=== PATIENT | male | born 1940 | race Caucasian/White ===

== ENCOUNTER 2016-06-27 15:47 | Inpatient (IN) | payer MEDICARE ==
[~2016-06-27] VITALS: Ht 175.3 cm; Wt 117.4 kg
[2016-07-01] MEDS ORDERED: METF500T PO (11:14)
[2016-07-01] MEDS ORDERED: APIX5TAB PO (11:14)
[2016-07-01] MEDS ORDERED: HYDR25TA5 PO (11:14)
[2016-07-01] MEDS ORDERED: TAMS5CAP PO (11:14)
[2016-07-01] MEDS ORDERED: CARD120T4 PO (11:14)
[2016-07-01] MEDS ORDERED: PRAV20TA PO (11:14)
[2016-07-02] MEDS ORDERED: INSULIN HUMAN REGULAR 1,000 UNITS/10 ML VIAL SQ PRN (07:00)
[2016-07-02] MEDS ORDERED: EXPAREL PERI-ARTICULAR INJECTION (TOTAL VOL. 60 ML) P-ARTICULR SCH ×2 (07:00)
[2016-07-02] MEDS ORDERED: TRANEXAMIC ACID IV SCH (07:00)
[2016-07-02] MEDS ORDERED: METOPROLOL TARTRATE 25 MG TAB PO PRN (07:00)
[2016-07-02] MEDS ORDERED: ceFAZolin 2 GM PREMIX 50 ML IV SCH (07:00)
[2016-07-02] MEDS ORDERED: SODIUM CHLORIDE 0.9% IV SCH (07:00)
[2016-07-02] MEDS ORDERED: LACTATED RINGER'S 1000 ML IV SCH (07:00)
[2016-07-02] MEDS: POVIDONE IODINE 7.5% SCRUB 118 ML BOTTLE TOP SCH (07:00)
[2016-07-02] MEDS ORDERED: VANCOMYCIN 1000 MG/NS 250 ML (for <70 kg) IV SCH ×2 (07:00)
[2016-07-02] MEDS ORDERED: SODIUM CHLORID 0.9% 500 ML IV SCH (07:00)
[2016-07-02] MEDS ORDERED: BUPIVACAINE LIPOSO PF 1.3% INJ 20 ML in SODIUM CHLORIDE 0.9% INJ 40 ML P-ARTICULR SCH (07:04)
--- NOTE | 2016-07-02 07:21 | MH ---
cc: ADRIANA LEONE DATE OF ADMISSION: 07/02/2016 ADMISSION DIAGNOSIS Malfunctioning left unicompartmental replacement arthroplasty. HISTORY This is a 76-year-old white male with a history of previous left knee medial compartment unicompartmental placement. The patient is having failure of the tibial component with subsidence. The patient has significant pain and progressive varus deformity. He presents now for surgical treatment. PAST MEDICAL HISTORY, SOCIAL HISTORY, FAMILY HISTORY, REVIEW OF SYSTEMS See attached notes. PHYSICAL EXAMINATION General: A 76-year-old male in moderate distress with his left knee. HEENT: Normocephalic, atraumatic. Pupils equal, round, reactive to light and accommodation. Extraocular motions intact. Neck: Supple. Chest: Clear. Heart: Regular rate and rhythm. Abdomen: Soft, nontender with normoactive bowel sounds. Musculoskeletal: Examination shows left knee pain with range of motion. Well-healed medial incision, varus deformity, mild instability. Neurologic and Vascular Examination: Within normal limits. IMPRESSION Malfunctioning left unicompartmental replacement arthroplasty. PLAN Revision left total knee replacement arthroplasty, possible tibial osteotomy with fixation. CONSENT There are risks with surgery including infection, bleeding, loss of motion, continued pain, need for further surgery, neurologic and vascular injury. The patient understands these issues and wishes to press on with the surgery as outlined above. MD DEDE Bal/LANE /10:41 PM /7:18 AM
[2016-07-02] MEDS ORDERED: CALC600T25 PO (07:36)
[2016-07-02] MEDS ORDERED: POTA2.5T (07:36)
[2016-07-02] MEDS ORDERED: CYAN1TAB24 PO (07:36)
[2016-07-02] MEDS ORDERED: CHOL1TAB29 PO (07:36)
[2016-07-02 07:38] VITALS: BP 155/78; PULSE 74; RESP 18; TEMP 97.6; O2SAT 100
[2016-07-02] MEDS ORDERED: FAMOTIDINE 20 MG/2 ML VIAL ONE (07:59)
[2016-07-02] MEDS ORDERED: DEXAMETHASONE SOD PHOS 4 MG/ML VIAL ONE (07:59)
[2016-07-02] MEDS ORDERED: MIDAZOLAM HCL 5 MG/5 ML VIAL ONE (07:59)
[2016-07-02] MEDS ORDERED: GENTAMICIN SULFATE 80 MG/2 ML VIAL ONE (08:26)
[2016-07-02] MEDS ORDERED: BUPIVACAINE HCL PF 0.25% 30 ML VIAL NB ONE (10:46)
[2016-07-02] MEDS ORDERED: BUPIVACAINE HCL PF 0.5% 30 ML VIAL NB ONE (10:46)
[2016-07-02] MEDS ORDERED: DEXAMETHASONE SOD PHOS PF 10 MG/ML VIAL IV ONE (10:46)
[2016-07-02] MEDS ORDERED: ACETAMINOPHEN 1000 MG/100 ML VIAL IV ONE (11:04)
[2016-07-02] MEDS ORDERED: LACTATED RINGER'S 1000 ML INJ 1,000 ML IV ONE (11:29)
[2016-07-02] MEDS ORDERED: PROPOFOL 200 MG/20 ML AMP IV ONE (11:29)
[2016-07-02] MEDS ORDERED: ONDANSETRON HCL 4 MG/2 ML VIAL IV PUSH ONE (11:29)
[2016-07-02] MEDS ORDERED: NEOSTIGMINE 3 MG/3 ML SYR IV ONE (11:29)
[2016-07-02] MEDS ORDERED: ACETAMINOPHEN/HYDROcodone 325 MG/7.5 MG TAB PO PRN (12:30)
[2016-07-02] MEDS ORDERED: TEMAZEPAM 15 MG CAP PO PRN (12:30)
[2016-07-02] MEDS ORDERED: SODIUM CHLORIDE 0.9% FLUSH 5 ML FLUSH IVF PRN (12:30)
[2016-07-02] MEDS ORDERED: ALUMINUM/MAGNESIUM/SIMETH 30 ML CUP PO PRN (12:30)
[2016-07-02] MEDS ORDERED: MISCELLANEOUS NURSING INFORMATION XX PRN (12:30)
[2016-07-02] MEDS ORDERED: DEXTROSE 50% IN WATER 50 ML VIAL(D50) IV PRN (12:30)
[2016-07-02] MEDS ORDERED: NALOXONE HCL 0.4 MG/ML AMP IV PRN (12:30)
[2016-07-02] MEDS ORDERED: MAGNESIUM HYDROXIDE SUSP 30 ML CUP PO PRN (12:30)
[2016-07-02] MEDS ORDERED: GLUCAGON 1 MG/ML VIAL IM/SQ PRN (12:30)
[2016-07-02] MEDS ORDERED: MORPHINE SULFATE 30 MG/30 ML PCA IV SCH (12:30)
[2016-07-02] MEDS ORDERED: ONDANSETRON HCL 4 MG/2 ML VIAL IVP PRN (12:30)
[2016-07-02] MEDS ORDERED: MORPHINE SULFATE 8 MG/ML INJ IV PUSH PRN (12:30)
[2016-07-02] MEDS ORDERED: BISACODYL 10 MG SUPP PR PRN (12:30)
--- NOTE | 2016-07-02 12:33 | PD.OP ---
cc: Quinn Knight MD Operative Report Date of Surgery: Jul 02, 2016 Preoperative Diagnosis: Malfunctioning left medial compartment partial knee replacement. Loosening tibial component Postoperative Diagnosis: Same Procedure: Revision left total knee replacement arthroplasty Anesthesia: Gen. Surgeon: Quinn Knight Data Coordinator(s): EVA Hurtado Operation and Findings: EBL: 100 cc INDICATION: This patient presents with long-standing arthritis of the knee. This patient has had a partial medial compartment unicompartmental replacement performed by another surgeon. The patient did well initially but developing progressive varus deformity. The patient has evidence of loosening of the tibial component. The patient now presents for revision arthroplasty NOTE: Magali Hurtado PA-C was present for the entire surgical procedure as my assistant technician. In my medical opinion her skill and care was necessary for proper management of this patient. TOURNIQUET TIME: 97 minutes COMPANY: [employer] FEMUR: Size 5, left, posterior stabilized, bilateral 4 mm distal augment TIBIA: Size 4, fixed bearing PATELLA: 38 mm POLYETHYLENE INSERT: 12.5, posterior stabilized mm PROCEDURE: This patient was brought the operating room and anesthetized in the supine position. The patient was positioned supine on the table. The tourniquet was placed about the thigh, and the leg was scrubbed with alcohol followed by Hibiclens followed by ChloraPrep and draped sterilely. A timeout was done, and antibiotics were given. After exsanguination the tourniquet was inflated to 250 mmHg. The previous incision was excised. A medial arthrotomy was performed. There was significant synovitis. There was significant wear of the polyethylene in the medial compartment. There was evidence of loosening of the tibial component. Deep retractors allowed good visualization. A pilot boat deckhand hole was placed in the distal femur allowing a 5 cut to be made based off of preoperative templating. We resected 9 mm from the distal lateral femoral condyle. We initially resected as much as we could and then worked carefully to remove the femoral component. A combination of osteotomes and chisels were used and the medial femoral component was removed without incident. Anterior, posterior and chamfer cuts were performed for a #5 femoral component. A box cut was made for the posterior stabilized portion. The attention was directed to the tibia. A combination of saw's at osteotomes were used to loosen the rest of the tibial component from the surrounding tissue and removed in a retrograde fashion. The external alignment guide was utilized removing approximately 12 mm from the distal lateral tibia which removed 0 from the medial side. We sized this for a #4 tibial component. Posterior releases were accomplished. We found with a 15 mm insert was still unstable and extension but satisfactory in flexion. It was almost a little too tight in flexion. We built the distal femur out the 4 mm and then balanced with a 12-1/2 mm insert. This gave good balancing in flexion and extension. The components were prepared on the back table. The wound was irrigated copiously and dried. 2 packs of methacrylate were mixed. The components were cemented. Excess cement was removed. The patella was cemented as well. We trialed a 12.5 mm insert which fit nicely. The final insert was inserted. Tourniquet was let down. Hemostasis was controlled. A drain was brought through a separate stab incision. The arthrotomy was repaired with interrupted #1 Vicryl suture, subcutaneous tissue 2-0 Vicryl suture and skin with metallic billy A sterile dressing was applied. Sponge counts, needle counts and instrument counts were all correct. The patient tolerated procedure well and was taken to recovery in satisfactory condition. FINDINGS: There was evidence of subsidence of the tibial component. There was wear of the tibial plastic with varus deformity and aggressive synovitis. The final balancing was satisfactory. No complication was appreciated. Quinn Knight MD Jul 02, 2016 12:32
[2016-07-02] MEDS ORDERED: XARE10TA PO (12:35)
[2016-07-02] MEDS ORDERED: HYDR-3580 PO (12:35)
[2016-07-02] MEDS ORDERED: Post-op Orders (for Pharmacy) MISC XX ONE (12:37)
[2016-07-02] MEDS ORDERED: fentaNYL CITRATE 250 MCG/5 ML AMP ONE (12:52)
[2016-07-02] MEDS: LACTATED RINGER'S 1000 ML INJ 1,000 ML IV SCH (13:00)
[2016-07-02] MEDS ORDERED: DO NOT ADM ANY ANTICOAGULANT DRUGS XX PRN (13:15)
[2016-07-02] MEDS: PCA - TOTAL MG MORPHINE DELIVERED PER SHIFT SCH ×2 (14:00→22:00)
--- NOTE | 2016-07-02 15:02 | RADRPT ---
EXAM DATE/TIME: 07/02/2016 13:06 [facility] COMPARISON: No previous studies available for comparison. INDICATIONS : Post-op total left knee arthroplasty. MEDICAL HISTORY : Hypertension. Diabetes mellitus type II. SURGICAL HISTORY : Fusion, lumbar. Left knee barbara-arthroplasty, right trigger finger surgery. ENCOUNTER: Initial ACUITY: 1 day PAIN SCORE: 0/10 LOCATION: Left Knee. FINDINGS: The patient is status post total knee replacement. The prosthetic components appear we ll placed. There is a suprapatellar drain in place. Air is seen within the soft tissues. Skin stapl es are seen anteriorly. CONCLUSION: Successful total knee replacement. Salty Galeano MD on July 02, 2016 at 14:51 Board Certified Radiologist. This report was verified electronically.
[2016-07-02 16:40] VITALS: BP 164/71; PULSE 80; RESP 16; TEMP 98; O2SAT 100
[2016-07-02] MEDS: metFORMIN HCL 500 MG TAB PO SCH (17:36)
[2016-07-02] MEDS: INSULIN NovoLIN REGULAR SUPPLEMENTAL SCALE SQ SCH ×2 (17:36→22:05)
[2016-07-02 20:00] VITALS: BP 120/67; PULSE 73; RESP 16; TEMP 96.4; O2SAT 100
[2016-07-02] MEDS: TAMSULOSIN HCL 0.4 MG CAP PO SCH (22:05)
[2016-07-02] MEDS: SODIUM CHLORIDE 0.9% FLUSH 5 ML FLUSH IVF SCH (22:06)
[2016-07-03] VITALS (8 sets, daily range): BP systolic 116–139; BP diastolic 56–69; PULSE 69–91; RESP 16–18; TEMP 95.6–97.9; O2SAT 95–100
[2016-07-03] MEDS: LACTATED RINGER'S 1000 ML INJ 1,000 ML IV SCH ×3 (00:51→23:55)
[2016-07-03] MEDS: PCA - TOTAL MG MORPHINE DELIVERED PER SHIFT SCH (06:00)
[2016-07-03] MEDS: INSULIN NovoLIN REGULAR SUPPLEMENTAL SCALE SQ SCH ×4 (06:14→20:28)
[2016-07-03 06:52] LABS: HEMATOCRIT 35.4 % (39.0-51.0); REVIEW FLAG FINAL
[2016-07-03] MEDS: POVIDONE IODINE 7.5% SCRUB 118 ML BOTTLE TOP SCH (07:00)
[2016-07-03] MEDS ORDERED: WALKER WHEELS/F1 MIS (08:29)
[2016-07-03] MEDS ORDERED: MISC-163 (08:30)
[2016-07-03] MEDS ORDERED: CPMMACHINE (08:30)
[2016-07-03] MEDS: HYDROCHLOROTHIAZIDE 25 MG TAB PO SCH (08:54)
[2016-07-03] MEDS: metFORMIN HCL 500 MG TAB PO SCH ×2 (08:54→17:43)
[2016-07-03] MEDS: DILTIAZEM-CD 120 MG CAP ER PO SCH (08:54)
[2016-07-03] MEDS: PRAVASTATIN SOD 20 MG TAB PO SCH (08:57)
[2016-07-03] MEDS: SODIUM CHLORIDE 0.9% FLUSH 5 ML FLUSH IVF SCH ×2 (08:58→20:28)
[2016-07-03] MEDS ORDERED: RIVAROXABAN 10 MG TAB PO SCH (12:00)
[2016-07-03] MEDS: APIXABAN 2.5 MG TABLET PO SCH ×2 (12:04→20:28)
--- NOTE | 2016-07-03 13:10 | PD.ORT.PN ---
Subjective Subjective Remarks Left knee pain well controlled. States full sensation yet to return due to preop block. No other complaints. Urinating well. Appetite fine. No CP or SOB. Objective Vitals Vital Signs Date Time Temp Pulse Resp B/P Pulse Ox O2 Delivery O2 Flow Rate FiO2 07/03/16 11:54 96.5 91 18 127/66 96 07/03/16 08:51 95.6 85 18 118/61 95 07/03/16 04:00 96.5 73 16 116/60 100 07/03/16 00:00 96.5 69 17 117/56 98 07/02/16 20:00 96.4 73 16 120/67 100 07/02/16 16:40 98.0 80 16 164/71 100 07/02/16 15:55 97.6 68 16 148/85 98 Nasal Cannula 2 07/02/16 15:00 72 16 142/78 96 Nasal Cannula 2 07/02/16 14:00 75 16 145/76 95 Nasal Cannula 2 07/02/16 13:45 78 16 141/78 95 Nasal Cannula 2 07/02/16 13:30 97.8 80 16 142/72 98 Nasal Cannula 3 07/02/16 13:15 84 15 145/80 97 Nasal Cannula 3 I/O 07/02/16 07/02/16 07/02/16 07/03/16 07/03/16 07/03/16 07:00 15:00 23:00 07:00 15:00 23:00 Intake Total 1800 ml 1375 ml 939 ml Output Total 550 ml 965 ml 1340 ml Balance 1250 ml 410 ml -401 ml Intake Oral 240 ml 360 ml IV Total 1135 ml 579 ml Other 1800 ml Output Urine Total 450 ml 650 ml 1250 ml Drainage Total 315 ml 90 ml Estimated Blood Loss 100 ml # Bowel Movements 0 0 Result Diagram: 07/03/16 0601 Objective Remarks Sitting up in bed No acute distress VSS Left LE Dressing c/d/i at knee, drain site clear, mild swelling, no obv erythema thigh and calf both supple, neg homans +motor at/ehl, +sens at foot (diminished at knee), +nvi Assessment & Plan Ortho Post Op Day #: 1 Problem List: Assessment and Plan pod#1 s/p L TKA D/C SERVICES HOST - change to po pain meds. Hold dressing changes unless saturated. D/C left knee drain. PT - WBAT LLE. Anterior emma precautions. Change Xarelto 10mg qd to Eliquis 2.5mg BID. D/C planning, [facility]hc versus SNF. He is unsure at this point. DME written. Maria Teresa Lujan Jul 03, 2016 13:10
--- NOTE | 2016-07-03 13:12 | HHI.FF ---
Face to Face Verification Diagnosis: (1) Mechanical complic of internal orthopedic device, implant or graft (2) Left knee pain Physical Therapy Gait training, Safety evaluation, Transfer training, bed to chair Knee: Total knee, Protocol: Left, Full weight bearing Canvas Knee Splint: When in bed & 2 pillows btw thighs Left LE Weight Bearing: WB as tolerated Additional Instructions PT 5 days/wk for 2 weeks. WBAT LLE. TKA protocol. CPM bid as tolerated, 0-70 w goal 100 flexion. CKS at night or when sleeping in bed. Nursing RN Days per Week: 2 x Week(s): 1 Dressing Changes: Do not change dressing Additional Instructions Vitals assessment, dressing assessment - do not change unless saturated. Ok to shower pod#5 if kept sealed and dry. I have seen patient Tam Chen on 07/03/16. My clinical findings support the need for the requested home health care services because: Limited ability to care for self High risk of falls I certify that my clinical findings support that this patient is homebound because: Post-op weakness Unsteady gait/balance Maria Teresa Lujan Jul 03, 2016 13:12
[2016-07-03] MEDS: ACETAMINOPHEN/HYDROcodone 325 MG/7.5 MG TAB PO PRN (15:31)
[2016-07-03] MEDS: DOCUSATE SODIUM 100 MG CAP PO SCH (20:27)
[2016-07-03] MEDS: TAMSULOSIN HCL 0.4 MG CAP PO SCH (20:27)
[2016-07-03] MEDS: MULTIVITAMINS/MINERALS THERAPEUTIC TAB PO SCH (20:27)
[2016-07-04] VITALS (7 sets, daily range): BP systolic 127–149; BP diastolic 60–74; PULSE 80–102; RESP 16–18; TEMP 96–98.9; O2SAT 94–98
[2016-07-04] MEDS: INSULIN NovoLIN REGULAR SUPPLEMENTAL SCALE SQ SCH ×4 (04:58→19:42)
[2016-07-04] MEDS: POVIDONE IODINE 7.5% SCRUB 118 ML BOTTLE TOP SCH (04:58)
[2016-07-04] MEDS: MULTIVITAMINS/MINERALS THERAPEUTIC TAB PO SCH ×2 (08:10→19:41)
[2016-07-04] MEDS: APIXABAN 2.5 MG TABLET PO SCH ×2 (08:10→19:41)
[2016-07-04] MEDS: DILTIAZEM-CD 120 MG CAP ER PO SCH (08:10)
[2016-07-04] MEDS: DOCUSATE SODIUM 100 MG CAP PO SCH ×2 (08:10→19:41)
[2016-07-04] MEDS: metFORMIN HCL 500 MG TAB PO SCH ×2 (08:10→17:50)
[2016-07-04] MEDS: HYDROCHLOROTHIAZIDE 25 MG TAB PO SCH (08:10)
[2016-07-04] MEDS: ACETAMINOPHEN/HYDROcodone 325 MG/7.5 MG TAB PO PRN ×2 (08:11→19:42)
[2016-07-04] MEDS: SODIUM CHLORIDE 0.9% FLUSH 5 ML FLUSH IVF SCH ×2 (08:12→19:55)
[2016-07-04] MEDS: PRAVASTATIN SOD 20 MG TAB PO SCH (08:12)
--- NOTE | 2016-07-04 09:03 | HHI.DCPOC ---
Discharge Care Plan Diagnosis: (1) Left knee pain (2) Mechanical complic of internal orthopedic device, implant or graft Your Health Problems Are: Incision/Drains Goals to Promote Your Health * To prevent worsening of your condition and complications * To maintain your health at the optimal level Directions to Meet Your Goals Take your medications as prescribed Follow your dietary instruction Follow activity as directed Keep your appointments as scheduled Take your immunizations and boosters as scheduled If your symptoms worsen call your PCP, if no PCP go to Urgent Care Center or Emergency Room Smoking is Dangerous to Your Health. Avoid second hand smoke Call the 24-hour hour crisis hotline for domestic abuse at Maria Teresa Lujan Jul 04, 2016 09:03
--- NOTE | 2016-07-04 09:06 | HHI.DS ---
Discharge Summary Admission Date Jul 02, 2016 at 06:30 Discharge Date: Jul 05, 2016 Admitting Diagnosis see below Diagnosis: (1) Left knee pain Diagnosis: Principal (2) Mechanical complic of internal orthopedic device, implant or graft Diagnosis: Principal Procedures Revisional left total knee arthroplasty (medial uni to total knee) Brief History This is a 76 year old male patient with a history of left medial unicompartmental knee replacement arthroplasty. He did well for many years following his surgery but began struggling with medial knee pain months ago. Activity changes did not provide much relief so medical treatment was sought out. Imaging studies were performed showing likely loosening and wear of the prosthesis. He continued to decline despite medications and activity changes. Surgical treatment in the form of revisional surgery was recommended and he elected to move forward. CBC/BMP: 07/03/16 0601 Significant Findings Laboratory Tests Test 07/03/16 06:01 Hemoglobin 11.8 GM/DL (13.0-17.0) Hematocrit 35.4 % (39.0-51.0) PE at Discharge Sitting up in bed No acute distress VSS Left LE Dressing c/d/i at knee, drain site clear, mild swelling, no obv erythema thigh and calf both supple, neg homans +motor at/ehl, +sens at foot (diminished at knee), +nvi Hospital Course Surgical treatment was performed on the day of admission without complication. He recovered well in PACU and was transferred to the orthopaedic floor. Pain was controlled with IV and oral medications. DVT prophylaxis was initiated pod# 1 as Eliquis 2.5mg twice daily. He was compliant with physical therapy and all total knee precautions. After 3 days he was found to be stable and discharged home with home health care with instructions to pursue a high fiber diet and to continue therapy. Pt Condition on Discharge: Stable Discharge Disposition: Disch w/ Home Health Serv Discharge Instructions Diet Instructions: Diabetic Diet, High Fiber Diet Activities You Can Perform: Weight Bearing as Edy Activities to Avoid: Strenuous Activity Additional Activity Instruc.: TKA protocol New Medications: 3-in-1 Bedside Toilet (3-in-1 Bedside Toilet) 1 Mis Mis 1 EA .ROUTE DIRECTED #1 EA CPM-Continuous Passive Motion Machine (CPM-Continuous Passive Motion Machine) 1 Ea Device 1 EA .ROUTE DIRECTED #1 Ref 0 EA Walker with Front Wheels (Walker with Front Wheels) 1 Mis Mis 1 EA .ROUTE DIRECTED #1 Ref 0 EA Hydrocodone-Acetaminophen (Hydrocodone-Acetaminophen) 7.5-325 mg Tab 1 TAB PO Q4H PRN PAIN LESS THAN 5 ON SCALE #50 TAB Rivaroxaban (Xarelto) 10 Mg Tab 10 MG PO Q24H Prevent Blood Clot #15 TAB Continued Medications: Apixaban (Eliquis) 5 Mg Tab 5 MG PO BID Blood Clot Prevention #60 Ref 0 TAB Calcium Carbonate (Calcium) 600 Mg Tab PO BID Cholecalciferol (D3 2000) 2,000 Unit Tab PO DAILY Cyanocobalamin (B12) 1,000 Mcg Tab PO DAILY Diltiazem (Cardizem) 120 Mg Tab 120 MG PO DAILY Angina #120 Ref 0 TAB Hydrochlorothiazide (Hydrochlorothiazide) 25 Mg Tab 25 MG PO DAILY #30 Ref 0 TAB Metformin (Metformin) 500 Mg Tab 500 MG PO BIDPC With meals Blood Sugar Management #60 Ref 0 TAB Potassium Gluconate (Potassium Gluconate) 550 Mg Tab Pravastatin (Pravachol) 20 Mg Tab 20 MG PO DAILY Cholesterol Management #60 Ref 0 TAB Tamsulosin (Flomax) 0.4 Mg Cap 0.4 MG PO HS Manage Prostate Problems #30 Ref 0 CAP Maria Teresa Lujan Jul 04, 2016 09:06
--- NOTE | 2016-07-04 09:09 | PD.ORT.PN ---
Subjective Subjective Remarks Left knee pain stable. Full sensation returned to left leg. No deficits. Urinating well. Appetite good. Still struggling some with transitions and PT. Prefers d/c to SNF tomorrow. No other complaints. No CP or SOB. Objective Vitals Vital Signs Date Time Temp Pulse Resp B/P Pulse Ox O2 Delivery O2 Flow Rate FiO2 07/04/16 07:51 96.6 80 18 127/60 95 07/04/16 00:27 97.5 95 16 136/65 95 07/03/16 20:00 97.9 86 17 139/69 99 07/03/16 18:45 99 21 07/03/16 16:00 96.7 90 18 119/60 100 07/03/16 13:03 95 21 07/03/16 11:54 96.5 91 18 127/66 96 I/O 07/03/16 07/03/16 07/03/16 07/04/16 07/04/16 07/04/16 07:00 15:00 23:00 07:00 15:00 23:00 Intake Total 939 ml 600 ml 480 ml 480 ml Output Total 1340 ml 250 ml 730 ml 950 ml Balance -401 ml 350 ml -250 ml -470 ml Intake Oral 360 ml 600 ml 480 ml 480 ml IV Total 579 ml Output Urine Total 1250 ml 250 ml 550 ml 950 ml Drainage Total 90 ml 180 ml # Voids 2 # Bowel Movements 0 0 0 0 Result Diagram: 07/03/16 0601 Procedures Revisional left total knee arthroplasty (medial uni to total knee) Objective Remarks Sitting up in bed No acute distress VSS Left LE Dressing c/d/i at knee, drain pulled and site clean, mild swelling, no obv erythema thigh and calf both supple, neg homans +motor at/ehl, +good sens, +nvi Assessment & Plan Ortho Post Op Day #: 2 Problem List: (1) Left knee pain (2) Mechanical complic of internal orthopedic device, implant or graft Assessment and Plan pod#2 s/p Revisional L TKA (medial uni to total) Making progress. Sensation much better today. Continue PO pain meds as needed. Hold dressing changes unless saturated. PT - WBAT LLE. Left TKA precautions. CPM bid. CKS when sleeping in bed. Eliquis 2.5mg BID. D/C planning, prefers d/c to SNF tomorrow. DME written. Maria Teresa Lujan Jul 04, 2016 09:09
[2016-07-04] MEDS: LACTATED RINGER'S 1000 ML INJ 1,000 ML IV SCH ×2 (14:21→23:45)
[2016-07-04] MEDS: TAMSULOSIN HCL 0.4 MG CAP PO SCH (19:41)
[2016-07-05 00:45] VITALS: BP 127/63; PULSE 89; RESP 18; TEMP 98.1; O2SAT 94
[2016-07-05] MEDS: INSULIN NovoLIN REGULAR SUPPLEMENTAL SCALE SQ SCH ×2 (05:52→11:36)
[2016-07-05 08:00] VITALS: BP 153/69; PULSE 88; RESP 18; TEMP 97.8; O2SAT 96
[2016-07-05] MEDS: DOCUSATE SODIUM 100 MG CAP PO SCH (08:40)
[2016-07-05] MEDS: HYDROCHLOROTHIAZIDE 25 MG TAB PO SCH (08:40)
[2016-07-05] MEDS: APIXABAN 2.5 MG TABLET PO SCH (08:40)
[2016-07-05] MEDS: MULTIVITAMINS/MINERALS THERAPEUTIC TAB PO SCH (08:41)
[2016-07-05] MEDS: SODIUM CHLORIDE 0.9% FLUSH 5 ML FLUSH IVF SCH (08:41)
[2016-07-05] MEDS: DILTIAZEM-CD 120 MG CAP ER PO SCH (08:41)
[2016-07-05] MEDS: metFORMIN HCL 500 MG TAB PO SCH (08:41)
[2016-07-05] MEDS: PRAVASTATIN SOD 20 MG TAB PO SCH (08:41)
[2016-07-05 09:46] VITALS: O2SAT 96
[2016-07-05] MEDS: ACETAMINOPHEN/HYDROcodone 325 MG/7.5 MG TAB PO PRN (11:36)
[2016-07-05 12:00] VITALS: BP 121/62; PULSE 66; RESP 18; TEMP 97.5; O2SAT 95
== END 2016-07-05 13:30 | disposition home health service (06) | DRG 468 ==
LOC: HSDI 07-02 06:30 → N06A 07-02 16:19
PROVIDERS: ADMIT Orthopaedic Surgery Orthopaedic Surgery of the Spine; ATTEND Orthopaedic Surgery Orthopaedic Surgery of the Spine
PROC: 0SPD0JZ Removal of Synthetic Substitute from Left Knee Joint, Open Approach (ICD-10-PCS; 2016-07-02)
PROC: 3E0T3CZ (ICD-10-PCS; 2016-07-02)
PROC: 0SRD0J9 Replacement of Left Knee Joint with Synthetic Substitute, Cemented, Open Approach (ICD-10-PCS; principal; 2016-07-02 09:10)
DX: T84.033A Mechanical loosening of internal left knee prosthetic joint, initial encounter (principal); Y83.8 Other surgical procedures as the cause of abnormal reaction of the patient, or of later complication, without mention of misadventure at the time of the procedure; Y79.2 Prosthetic and other implants, materials and accessory orthopedic devices associated with adverse incidents
CPT/HCPCS: 73560; 82948; 85014; 85018; 86850; 86900; 86901; 86920; 94150; C1776; C9290; J0131; J0690; J1100; J1580; J2250; J2270; J2405; J2710; J3010; J3370; J7050; J7120; L1830

== ENCOUNTER 2018-03-31 05:41 | Inpatient (IN) ==
[2018-03-31] MEDS ORDERED: Chlorhexidine Gluconate 2% 1 Pack (2 Cloths) TOPICAL ONE (06:12)
[2018-03-31] MEDS ORDERED: Metoprolol Tartrate 25 MG Tablet PO ONE (06:12)
[2018-03-31] MEDS ORDERED: Chlorhexidine 4% Topical 120 APPLIC/120 ML Bottle TOPICAL SCH (06:15)
[2018-03-31] MEDS ORDERED: Sodium Chlor 0.9% Inj 40 ML, Bupivacaine Liposo PF 1.3% Inj 20 ML P-ARTICULR SCH ×2 (07:00)
[2018-03-31] MEDS ORDERED: ceFAZolin 2 GM Premix Inj 2 GM/50 ML PIGGYBACK IV.SIG SCH (07:00)
[2018-03-31] MEDS ORDERED: Vancomycin Inj 1,000 MG in Sodium Chlor 0.9% Inj 250 ML IV.SIG SCH (07:00)
[2018-03-31] MEDS ORDERED: Tranexamic Acid Inj 1,020 MG in Sodium Chlor 0.9% Inj 100 ML IV.SIG SCH (07:00)
[2018-03-31] MEDS ORDERED: Sodium Chlor 0.9% Inj 500 ML IV.SIG SCH (07:00)
[2018-03-31] MEDS ORDERED: Glycopyrrolate Inj 1 MG/5 ML Syringe IV.PUSH ONE (07:48)
[2018-03-31] MEDS ORDERED: Neostigmine Inj 5 MG/5 ML Syringe IV.PUSH ONE (07:48)
[2018-03-31] MEDS ORDERED: Phenylephrine/NS 1000 MCG/10ML Syringe IV.PUSH ONE (07:48)
[2018-03-31] MEDS ORDERED: Bupivacaine/Epinephrine PF Inj 0.5% 10 ML Vial ONE (08:37)
[2018-03-31] MEDS ORDERED: Bupivacaine/Epinephrine Inj 0.25% 50 ML Vial ONE (08:40)
[2018-03-31] MEDS ORDERED: MethylPREDNISolone Sod Succinate Inj 125 MG/2 ML Vial ONE (08:41)
[2018-03-31] MEDS ORDERED: Morphine Inj 4 MG/ML Vial IV.PUSH PRN ×2 (09:33→13:08)
[2018-03-31] MEDS ORDERED: Post-op Orders (for Pharmacy) OTHER STA ×2 (09:33→13:08)
[2018-03-31] MEDS ORDERED: Bisacodyl 10 MG Supp RECTAL PRN ×2 (09:33→13:08)
--- NOTE | 2018-03-31 09:50 | P.OP ---
- Preoperative Diagnosis (1) Avascular necrosis of bone of right hip Preoperative Diagnosis: History of Legg-Perthes disease Acetabular dysplasia. Avascular necrosis/osteoarthritis right hip, severe Postoperative Diagnosis: Same Date of procedure: 03/31/18 Procedure: Right total hip replacement arthroplasty, posterior exposure Anesthesia: GETA Surgeon: Quinn Knight MD Senior Sales Manager: EVA Lujan Operation and Findings: EBL: 300 cc INDICATION: This patient is a 78-year-old male with severe right hip pain. He had Legg-Perthes disease as a child and has had shortening of the right leg compared to left since childhood. She has developed progressive acetabular dysplasia with progressive flattening of the femoral head consistent with progressing avascular necrosis/osteoarthritis. He was a scheduled for an anterior total hip replacement but because of a yeast infection developing in the pannus of his abdomen, it was felt best to convert this to a posterior total hip after proper consent with the patient. He presents for surgical treatment. NOTE: Maria Teresa Lujan PA-C was present for the entire surgical procedure as my accounting administrative assistant. In my medical opinion her skill and care was necessary for the proper management of this patient. COMPONENTS: COMPANY: [employer] CUP: Marcus, 56 mm, 100 series STEM: Size 5, high offset, Orient pressfit HEAD: Metal, 36 mm, +5 12/14 taper ALTRX: 36, neutral PROCEDURE: This patient was brought to the operating room and anesthetized in the supine position and positioned on the routine table in the clean air suite. The patient was then rolled to a right side up lateral position and held with a Biomet hip positioner. The hip and leg was scrubbed with alcohol followed by Hibiclens followed by chloro prep and draped sterilely. A timeout was done and antibiotics were given within a routine time window. A 4 inch incision was made starting along the posterior one third of the greater trochanter. The iliotibial band was opened in line with the incision. The Charnley retractors were positioned. The posterior capsule and external rotators were taken down together in a sleeve. The sciatic nerve was palpated to be deep to the dissection during the entire procedure. The neck was cut at the right location. The head was removed from the wound. The acetabulum was inspected. Deep retractors were positioned. The acetabulum was deepened down to the floor and started with a proper size reamer and reaming up to 55 mm. This was trialed with the same size trial. The overall fit was satisfactory. The rim was touched with the next size reamer. The cup was placed in approximately 40 of abduction and 30 of forward flexion. The final liner was positioned. Retractors were positioned allowing good visualization of the proximal femur. A box osteotome was utilized followed by a taper pin reamer followed by progressive broaching for the Orient stem. This was reamed and broached and eventually advanced to a size 5 stem. A trial reduction showed satisfactory stability. Offset was satisfactory. Leg length was reestablished. At 90 of flexion it was stable to 50 of internal rotation. The hip could not be subluxed anteriorly. The final stem was inserted in approximately 15 of anteversion. The final head was impacted. The hip was reduced and stability, offset and leg length was as previously noted. The posterior capsule and external rotators were repaired through bone with interrupted #2 Tycron sutures. The piriformis muscle was repaired with the same. The iliotibial band with interrupted #1 Vicryl sutures. Subcutaneous tissue was approximated with 2-0 Vicryl suture and skin with running intradermal 3-0 Vicryl followed by Steri-Strips and benzoin. A sterile dressing was applied.. The sponge count needle counts and instrument counts were all correct. The patient was awakened and taken to the recovery room in satisfactory condition FINDINGS: There was severe acetabular dysplasia. The leg was lengthened slightly. The right leg will still be shorter because of Legg-Perthes disease and congenital development of the right hip. There was no complication that was appreciated.
--- NOTE | 2018-03-31 10:00 | P.DCO ---
- Physical Therapy Physical Therapy: Gait training (5x/wk for 2 weeks) Hip: Total hip, Protocol: Right, Posterior hip precautions Right Lower Extremity Weight Bearing: Weight bearing as tolerated - Nursing RN: 3 days/week x 2 weeks Dressing changes: Do not change dressing (If dressing saturated, change daily with dry dressing) - Certification Need for Home Health services: I have seen patient Tam Chen on 03/31/18. My clinical findings support the need for the requested home health care services because: Need for Home Health Services: High risk of falls Homebound Certification: I certify that my clinical findings support that this patient is homebound because: Homebound Certification: Post-op weakness
[2018-03-31] MEDS ORDERED: fentaNYL Citrate Inj 100 MCG/2 ML Ampul ONE (10:13)
[2018-03-31] MEDS ORDERED: *morphine SULFATE 4 MG/ML PERIprocedure ONLY ONE ×3 (10:34→12:26)
--- NOTE | 2018-03-31 11:18 | XR ---
EXAM DATE: 03/31/2018 9:34 AM EDT AGE/SEX: 78 years / Male INDICATIONS: Status post right hip surgery. Right hip pain. CLINICAL DATA: This is the patient's initial encounter. Patient reports that signs and symptoms have been present for 1 day and indicates a pain score of 0/10. MEDICAL/SURGICAL HISTORY: . Hypertension. Diabetes mellitus type II. . Fusion, lumbar. Left knee barbara-arthroplasty, right trigger finger surgery COMPARISON: No prior exams available for comparison. FINDINGS: Right total hip arthroplasty is present. Hardware appears intact. Alignment is anatomic. There is no evidence of fracture or other acute process. The adjacent pelvis is intact. CONCLUSION: Satisfactory appearance of right CHEIKH. No acute bony findings Electronically signed by: Salty Zavala MD 03/31/2018 11:16 AM EDT
[2018-03-31] MEDS ORDERED: Influenza (Quadrivalent) Vaccine 0.5 ML Syringe IM ONE (14:00)
[2018-03-31] MEDS ORDERED: Multivitamin/Minerals Therapeutic Tablet PO SCH (21:00)
[2018-03-31] MEDS ORDERED: Temazepam 15 MG Capsule PO PRN ×2 (21:00)
[2018-03-31] MEDS ORDERED: Senna/Docusate Sodium 8.6/50 MG Tablet PO SCH (21:00)
[2018-03-31] MEDS: Multivitamin/Minerals Therapeutic Tablet PO SCH (21:34)
[2018-03-31] MEDS: Senna/Docusate Sodium 8.6/50 MG Tablet PO SCH (21:34)
[2018-04-01 05:25] LABS: Hematocrit 31.4 % (39.0-51.0); Hemoglobin 10.6 gm/dL (13.0-17.0)
[2018-04-01] MEDS: dilTIAZem CD 120 MG Capsule PO SCH (09:22)
[2018-04-01] MEDS: hydroCHLOROthiazide 25 MG Tablet PO SCH (09:22)
[2018-04-01] MEDS: Senna/Docusate Sodium 8.6/50 MG Tablet PO SCH ×2 (09:22→20:54)
[2018-04-01] MEDS: Multivitamin/Minerals Therapeutic Tablet PO SCH ×2 (09:24→20:54)
--- NOTE | 2018-04-01 11:07 | P.PNOP ---
Subjective Interval history: He is doing 'pretty well'. He denies any new radiating leg pain. He has some mild groin pain in to the buttock. He has 'only taken a pain pill or two' since surgery. He is pleased. He has questions about surgery and discharge. Physical Exam Vital signs: Vital Signs 03/31/18 12:00 03/31/18 12:30 03/31/18 16:00 Temperature 97.5 F L 97.4 F L Pulse Rate 90 90 97 H Respiratory Rate 21 21 18 Blood Pressure 172/77 H 159/74 H 182/78 H Pulse Oximetry 100 95 98 03/31/18 20:00 04/01/18 00:00 04/01/18 04:00 Temperature 98.0 F 97.5 F L 97.6 F Pulse Rate 100 H 99 H 77 Respiratory Rate 17 17 17 Blood Pressure 136/68 127/73 157/70 H Pulse Oximetry 97 96 96 04/01/18 08:00 Temperature 97.5 F L Pulse Rate 94 H Respiratory Rate 18 Blood Pressure 146/69 H Pulse Oximetry 98 Intake & Output 03/31/18 04/01/18 04/01/18 18:59 06:59 18:59 Intake Total 2307 / 2307 1033 / 1033 Output Total 805 / 805 960 / 960 Balance 1502 / 1502 73 / 73 Weight 102 kg 102 kg Intake: IV 267 / 267 1033 / 1033 LR 1000 mL Inj 1,000 ML @ 80 167 / 167 833 / 833 mls/hr IV.CONT .[id number] [facility] Rx# :[id number] Ancef Inj 1,000 MG In NS Inj 100 / 100 200 / 200 100 ML @ 200 mls/hr IV.SIG Q6H [facility] Rx#:[id number] Oral 240 / 240 Anesthesia Amount 1800 / 1800 Output: Urine 205 / 205 960 / 960 Estimated Blood Loss 600 / 600 Other: # Voids 1 4 # Incontinent Voids 0 # Urine Diapers 0 Date of Last Bowel Movement 03/31/18 03/30/18 # Bowel Movements 1 Narrative: Sitting up in bed NAD RLE Posterior hip dressing intact, no drainage, mild swelling, no erythema +motor at distal, +sens, +nvi Neg homans - Constitutional no acute distress Results - Labs CBC & Chem 7: 04/01/18 04:05 Laboratory Results - last 24 hr 03/31/18 04/01/18 20:58 04:05 Hgb 10.6 L Hct 31.4 L POC Glucose 303 H - Imaging Impressions Hip X-Ray 03/31/18 09:34 CONCLUSION: Satisfactory appearance of right CHEIKH. No acute bony findings - Procedures Right total hip arthroplasty, posterior approach Assessment and Plan - Ortho Post Op Day # 1 - Assessment and Plan pod#1 s/p R CHEIKH, posterior He is doing quite well. His pain is well controlled. PO pain meds as needed. Hold dressing changes unless saturated. PT - WBAT RLE. Posterior hip precautions. Walker assist. Eliquis 2.5mg Likely d/c home w hhc tomorrow. Follow up in 2 weeks.
--- NOTE | 2018-04-01 11:09 | P.DS ---
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 DS: Diagnosis - Discharge Diagnosis (1) Osteoarthritis of right hip Status: Acute DS: Medications - Discharge Medications Prescriptions: apixaban [Eliquis] 2.5 mg PO BID 7 Days #14 tab hydrocodone-acetaminophen 1 tab PO Q4H PRN #42 tab PRN Reason: Acute Pain DS: Summary Hospital Course: Surgical treatment was performed..After 2 days he was found to be stable and discharge home with home health care. He was given prescriptions for Danese and educated to return to his Eliquis 2.5mg. - Time Spent with Patient Total time spent providing and/or coordinating discharge services: Greater than 30 minutes - Quality: VTE Deep Vein Thrombosis/Pulmonary Embolism Present on Admission: No Exam Vital signs: Vital Signs 03/31/18 12:00 03/31/18 12:30 03/31/18 16:00 Temperature 97.5 F L 97.4 F L Pulse Rate 90 90 97 H Respiratory Rate 21 21 18 Blood Pressure 172/77 H 159/74 H 182/78 H Pulse Oximetry 100 95 98 03/31/18 20:00 04/01/18 00:00 04/01/18 04:00 Temperature 98.0 F 97.5 F L 97.6 F Pulse Rate 100 H 99 H 77 Respiratory Rate 17 17 17 Blood Pressure 136/68 127/73 157/70 H Pulse Oximetry 97 96 96 04/01/18 08:00 Temperature 97.5 F L Pulse Rate 94 H Respiratory Rate 18 Blood Pressure 146/69 H Pulse Oximetry 98 Intake & Output 03/31/18 04/01/18 04/01/18 18:59 06:59 18:59 Intake Total 2307 / 2307 1033 / 1033 Output Total 805 / 805 960 / 960 Balance 1502 / 1502 73 / 73 Weight 102 kg 102 kg Intake: IV 267 / 267 1033 / 1033 LR 1000 mL Inj 1,000 ML @ 80 167 / 167 833 / 833 mls/hr IV.CONT .[id number] [facility] Rx# :[id number] Ancef Inj 1,000 MG In NS Inj 100 / 100 200 / 200 100 ML @ 200 mls/hr IV.SIG Q6H [facility] Rx#:[id number] Oral 240 / 240 Anesthesia Amount 1800 / 1800 Output: Urine 205 / 205 960 / 960 Estimated Blood Loss 600 / 600 Other: # Voids 1 4 # Incontinent Voids 0 # Urine Diapers 0 Date of Last Bowel Movement 03/31/18 03/30/18 # Bowel Movements 1 Narrative: Sitting up in bed NAD RLE Posterior hip dressing intact, no drainage, mild swelling, no erythema +motor at distal, +sens, +nvi Neg homans Results Procedures completed during hospitalization: Right total hip arthroplasty, posterior approach Labs on day of discharge: Labs from last 24 hours 04/01/18 03/31/18 04:05 20:58 Hgb 10.6 L Hct 31.4 L POC Glucose 303 H - Impressions ITS Impressions Hip X-Ray 03/31/18 09:34 CONCLUSION: Satisfactory appearance of right CHEIKH. No acute bony findings Discharge Plan - Discharge Disposition Patient Disposition: W/Home Health Service - Discharge Condition Condition: Good - Discharge Order Discharge Orders: Discharge Order (Routine); Ordered 04/02/18 Ordered By: Quinn Leone - Discharge Details Anticipated Discharge Date: 04/02/18 - Physicians Team Primary Care Provider: Pranav Rajan Attending Provider: Quinn Leone Other Providers: [facility] - Rxs /Orders / Referrals /Forms Prescriptions: New apixaban [Eliquis] 2.5 mg Tablet 2.5 mg PO BID 7 Days Qty: 14 RF: 0 hydrocodone-acetaminophen 7.5-325 mg Tablet 1 tab PO Q4H PRN (Reason: Acute Pain) Qty: 42 RF: 0 Continue diltiazem HCl 120 mg Capsule,Extended Release 24 Hr 120 mg PO DAILY hydrochlorothiazide 25 mg Tablet 25 mg PO DAILY metformin 500 mg Tablet 500 mg PO BID pravastatin 20 mg Tablet 20 mg PO HS tamsulosin [Flomax] 0.4 mg Capsule 0.4 mg PO HS Discontinued apixaban [Eliquis] 5 mg Tablet 5 mg PO BID Ambulatory Orders / Order Sets / DME: Adjustable Commode 3-in-1 (1 each) (Routine) Location: Determined by Patient Ordered By: Quinn Leone Walker With Front Wheels (1 each) (Routine) Location: Determined by Patient Ordered By: Quinn Leone Referrals: Pranav Rajan, GARCÍA [Primary Care Provider] - See Instructions - Discharge Instructions Patient Printed Instructions: Hydrocodone/Acetaminophen (By mouth), Laxative, Stool Softeners (By mouth), Apixaban (By mouth), How to Choose and Use a Walker (GEN), Precautions after Total Joint Replacement Surgery (ED), Fall Prevention ( DC), JUAN MANUEL Hose (DC), Joint Replacement Surgery (DC), Total Hip Replacement (DC), Hip Abduction Pillow (DC) Additional Instructions: FOLLOW UP WITH DR. LEONE IF YOU EXPERIENCE CONTINUOUS MODERATE TO SEVERE BLEEDING, FEVER IN EXCESS OF 101 NOT RELIEVED WITH MEDICATION NUMBNESS TO OPERATED LEG OR EXTREME PAIN. KEEP DRESSING CLEAN AND DRY. DO NOT CHANGE. DR LEONE WILL CHANGE AT FOLLOW UP APPOINTMENT. APPLY ICE NEEDED WASH YOUR HANDS FREQUENTLY PRESCRIPTIONS PROVIDED AT TIME OF DISCHARGE CONTINUE TO WEAR YOUR JUAN MANUEL HOSE AND ABDUCTION PILLOW WHILE IN BED. DO NOT CROSS LEGS - Post Discharge Care Plan Care Plan Goals: Discharge Care Plan Goals for Total Hip Replacement You had a hip replacement surgery. This means your natural hip was replaced with an artificial joint (prosthesis). You may be recovering at home or in a rehabilitation facility. Either way, you must take care of your new hip. Here are some goals to help you heal well. Directions to Meet your Goals: 1. Activity & Exercises: * Take pain medicine as directed by your doctor. * Dont drive until your doctor says its OK. And never drive while taking opioid pain medicine. * Wear the support stockings you were given in the hospital as directed by your surgeon. * Dont sit for more than 30 to 45 minutes at one time. * Dont lean forward while sitting. * Dont cross your legs. * Keep your feet flat on the floor. Dont turn your foot or leg inward. This stresses your hip joint. * Use an elevated toilet seat for 6 weeks after surgery. * Nap if you are tired, but dont stay in bed all day. * Sit on a firm cushion when you ride in a car and avoid sitting too low. Try not to bend your hip too much when getting in and out of the car. 2. Prevent Falls/Injury: * Follow your doctors orders regarding how much weight to put on the affected leg. * Dont bend at the hip when you bend over. Don't bend at the waist to put on socks and shoes. And avoid picking up items from the floor. * Use a cane, crutches, a walker, or handrails until your balance, flexibility, and strength improve. And remember to ask for help from others when you need it. * Free up your hands so that you can use them to keep balance. Use a cristiana pack , apron, or pockets to carry things. * Arrange your household to keep the items you need handy. Keep everything else out of the way. * Remove items that may cause you to fall, such as throw rugs and electrical cords. * Use nonslip bath mats, grab bars, an elevated toilet seat, and a shower chair in your bathroom * Sit on a shower stool or chair when you shower to keep from falling. 3. Precautions: * Prevent infection. Any infection will need to be treated immediately. Call your doctor right away if you think you might have an infection. * Tell your dentist that you have an artificial joint and take antibiotics as prescribed before any dental work. * Tell all your healthcare providers about your artificial joint before any medical procedure. * Maintain a healthy weight. Get help to lose any extra pounds. Added body weight puts stress on the joints. 4. Incision Care: * Prevent infection by washing your hands often. If an infection occurs, it will need to be treated right away. * Call your doctor right away if you think you may have an infection. Symptoms include a fever or an incision that leaks white, green, or yellow fluid. * Don't soak your incision in water until your doctor says its OK. This means no hot tubs, bathtubs, or swimming pools. * Follow your doctor's instructions for changing the dressing. * Dont rub the incision, or apply creams or lotions to it. * If you notice any redness or drainage around the bandage site, contact your surgeon's office immediately. 5. Follow-Up: Do Not miss your follow-up appointment. Keep up with all your appointments and yearly check ups When to call your doctor: Call your doctor right away if you have: Hip pain gets worse Pain or swelling in your calf or leg not related to your incision Tenderness or redness in your calf Fever of 100.4F (38C) or higher, or as directed by your healthcare provider Shaking chills Swelling or redness at the incision site gets worse Fluid draining from the incision Call 911: Call 911 right away if you have: Chest pain Shortness of breath Any pain or tenderness in your calf
[2018-04-02 04:51] LABS: Hematocrit 31.2 % (39.0-51.0); Hemoglobin 10.4 gm/dL (13.0-17.0)
[2018-04-02] MEDS: hydroCHLOROthiazide 25 MG Tablet PO SCH (08:19)
[2018-04-02] MEDS: dilTIAZem CD 120 MG Capsule PO SCH (08:19)
[2018-04-02] MEDS: Senna/Docusate Sodium 8.6/50 MG Tablet PO SCH (08:19)
[2018-04-02] MEDS: Multivitamin/Minerals Therapeutic Tablet PO SCH (08:19)
--- NOTE | 2018-04-02 08:33 | P.PNOP ---
Subjective Interval history: He continues to improve. He is doing very well. His pain is well controlled. He is pleased. Ready for discharge home today. No other complaints or concerns. Physical Exam Vital signs: Vital Signs 04/01/18 12:00 04/01/18 16:00 04/01/18 20:00 Temperature 98 F 98 F 97.5 F L Pulse Rate 108 H 100 H 86 Respiratory Rate 18 18 16 Blood Pressure 146/63 H 120/64 142/64 H Pulse Oximetry 98 84 L 98 04/02/18 00:00 Temperature 97.6 F Pulse Rate 85 Respiratory Rate 17 Blood Pressure 146/66 H Pulse Oximetry 96 Intake & Output 04/01/18 04/02/18 04/02/18 18:59 06:59 18:59 Intake Total 1000 / 1000 1090.2 / 1090.2 Output Total 1200 / 1200 1200 / 1200 Balance -200 / -200 -109.8 / -109.8 Weight 102.2 kg Intake: IV 1000 / 1000 410.2 / 410.2 Vancomycin Inj 1,000 MG In NS 250 / 250 Inj 250 ML @ 250 mls/hr IV.SIG [employer] [facility] Rx#:[id number] Ancef 2 GM Premix Inj 2 gm In 50 / 50 50 ml @ 100 mls/hr IV.SIG [employer]IED [employer] [facility] Rx#:[id number] Oral 680 / 680 Output: Urine 1200 / 1200 1200 / 1200 Other: # Voids 4 Date of Last Bowel Movement 03/30/18 03/31/18 Narrative: Sitting up in bed NAD RN at bedside RLE Posterior hip dressing intact, no drainage, mild swelling, no erythema +motor at distal, +sens, +nvi Neg homans - Constitutional no acute distress Results - Labs CBC & Chem 7: 04/02/18 04:23 Laboratory Results - last 24 hr 04/02/18 04:23 Hgb 10.4 L Hct 31.2 L - Procedures Right total hip arthroplasty, posterior approach Assessment and Plan - Ortho Post Op Day # 2 - Problem List (1) Osteoarthritis of right hip Code(s): M16.11 - Unilateral primary osteoarthritis, right hip Status: Acute - Assessment and Plan pod#2 s/p R CHEIKH, posterior He continues to do well. Pain well controlled. Ok to d/c home today after PT. PO pain meds as needed. Hold dressing changes unless saturated. PT - WBAT RLE. Posterior hip precautions. Walker assist. Eliquis 2.5mg F/U in 2 weeks as scheduled. He has all DME (from previous lumbar surgery)
[2018-04-02 09:28] VITALS: BP 118/56; PULSE 90; RESP 22; TEMP 97.8; O2SAT 98
== END 2018-04-02 11:36 | disposition home health service (06) ==
LOC: HSDI 05:41 → N06 12:41
PROVIDERS: ADMIT Orthopaedic Surgery Orthopaedic Surgery of the Spine; ATTEND Orthopaedic Surgery Orthopaedic Surgery of the Spine